=== PATIENT | male | born 1940 | race Caucasian/White ===

== ENCOUNTER 2023-02-07 19:47 | Inpatient (IN) | payer MEDICARE, OTHER ==
[~2023-02-07] VITALS: Ht 177.8 cm; Wt 79.1 kg
[2023-02-07 21:36] VITALS: BP 110/63; TEMP 98.2; O2SAT 98
[2023-02-07] MEDS ORDERED: ASPI81TA31 PO (22:42)
[2023-02-07] MEDS ORDERED: INSU3INS6 SQ (22:42)
[2023-02-07] MEDS ORDERED: PARO-154 PO (22:42)
[2023-02-07] MEDS ORDERED: CEFD300C3 PO (22:42)
[2023-02-07] MEDS ORDERED: PANT40TA2 PO (22:42)
[2023-02-07] MEDS ORDERED: METH-807 PO (22:42)
[2023-02-07] MEDS ORDERED: SENN-18 PO (22:42)
[2023-02-07] MEDS ORDERED: DOCU100T2 PO (22:42)
[2023-02-07] MEDS ORDERED: ONDA4TAB11 PO (22:42)
[2023-02-07] MEDS ORDERED: LACT10SO58 PO (22:42)
[2023-02-07] MEDS ORDERED: ATOR40TA PO (22:42)
[2023-02-07] MEDS ORDERED: METO25TA6 PO (22:42)
[2023-02-07] MEDS ORDERED: MELA1TAB53 PO (22:42)
[2023-02-07] MEDS ORDERED: LOSA50TA39 PO (22:42)
[2023-02-07] MEDS ORDERED: POLY17PO4 PO (22:42)
[2023-02-07] MEDS ORDERED: INSU100C (22:44)
[2023-02-07] MEDS: ACETAMINOPHEN 325 MG TABLET PO PRN (23:45)
[2023-02-08 04:00] VITALS: BP 112/60; TEMP 98
[2023-02-08] MEDS: ACETAMINOPHEN 325 MG TABLET PO PRN ×2 (05:42→20:24)
[2023-02-08] MEDS ORDERED: DICL100G31 TP (07:18)
[2023-02-08 07:32] VITALS: BP 123/70; TEMP 98.2; O2SAT 96
[2023-02-08] MEDS ORDERED: DEXTROSE 50% 50 ML DISP.SYRIN IV PRN (08:00)
[2023-02-08] MEDS: HYDROCODONE/APAP 10-325 MG TABLET PO PRN ×2 (08:55→19:19)
[2023-02-08] MEDS ORDERED: ONDANSETRON ODT 4 MG TAB.RAPDIS SL PRN (09:15)
[2023-02-08] MEDS ORDERED: SENNOSIDES 1 TABLET PO PRN (09:15)
[2023-02-08] MEDS ORDERED: DOCUSATE SODIUM 100 MG CAPSULE PO PRN (09:15)
[2023-02-08] MEDS ORDERED: ASPIRIN 81 MG TAB.CHEW PO SCH (10:00)
[2023-02-08] MEDS: MIRALAX 17 GM POWD.PACK PO SCH (10:18)
[2023-02-08] MEDS: METOPROLOL TARTRATE 25 MG TABLET PO SCH ×2 (10:19→16:54)
[2023-02-08] MEDS: BLOOD SUGAR DIAGNOSTIC 1 EACH STRIP VI SCH ×3 (11:24→20:05)
[2023-02-08] MEDS: INSULIN REGULAR, HUMAN 300 UNIT/3 ML VIAL SQ PRN ×3 (11:26→20:27)
[2023-02-08] MEDS ORDERED: TAMS-3 PO (12:55)
[2023-02-08 15:10] VITALS: BP 134/64; TEMP 98.2; O2SAT 98
[2023-02-08] MEDS: PROTEIN SUPPLEMENT (PROSTAT) 30 ML LIQUID PO SCH (16:54)
[2023-02-08] MEDS ORDERED: CEFDINIR 300 MG PO SCH (17:00)
[2023-02-08] MEDS: PAROXETINE HCL 10 MG TABLET PO SCH (20:24)
[2023-02-08] MEDS: LOSARTAN POTASSIUM 50 MG TABLET PO SCH (20:25)
[2023-02-08] MEDS: TAMSULOSIN HCL 0.4 MG CAP.SR.24H PO SCH (20:25)
[2023-02-08] MEDS: ATORVASTATIN 40 MG TABLET PO SCH (20:25)
[2023-02-08] MEDS: INSULIN GLARGINE,HUM 300 UNITS/3 ML CARTRIDGE SQ SCH (20:29)
[2023-02-08 20:30] VITALS: BP 121/68; TEMP 99.1; O2SAT 95
[2023-02-08] MEDS: CEphaleXIN 250 MG CAPSULE PO SCH (21:06)
[2023-02-09] MEDS: HYDROCODONE/APAP 10-325 MG TABLET PO PRN ×3 (03:01→16:58)
[2023-02-09 04:35] VITALS: BP 138/88; TEMP 97.9; O2SAT 97
[2023-02-09] MEDS: PANTOPRAZOLE SODIUM 40 MG TABLET.DR PO SCH (06:30)
[2023-02-09] MEDS: CEphaleXIN 250 MG CAPSULE PO SCH ×3 (06:30→21:29)
[2023-02-09] MEDS: BLOOD SUGAR DIAGNOSTIC 1 EACH STRIP VI SCH ×4 (06:33→21:35)
[2023-02-09 07:46] VITALS: BP 132/76; TEMP 98.1; O2SAT 96
[2023-02-09] MEDS: MIRALAX 17 GM POWD.PACK PO SCH (09:34)
[2023-02-09] MEDS: METOPROLOL TARTRATE 25 MG TABLET PO SCH ×2 (09:38→17:19)
[2023-02-09] MEDS: PROTEIN SUPPLEMENT (PROSTAT) 30 ML LIQUID PO SCH ×2 (09:40→17:19)
[2023-02-09] MEDS: INSULIN REGULAR, HUMAN 300 UNIT/3 ML VIAL SQ PRN ×4 (09:46→21:37)
[2023-02-09 16:57] VITALS: BP 108/65; TEMP 98.2; O2SAT 97
[2023-02-09 20:30] VITALS: BP 106/61; TEMP 98.4; O2SAT 95
[2023-02-09] MEDS: ATORVASTATIN 40 MG TABLET PO SCH (21:28)
[2023-02-09] MEDS: PAROXETINE HCL 10 MG TABLET PO SCH (21:28)
[2023-02-09] MEDS: TAMSULOSIN HCL 0.4 MG CAP.SR.24H PO SCH (21:28)
[2023-02-09] MEDS: ACETAMINOPHEN 325 MG TABLET PO PRN (21:28)
[2023-02-09] MEDS: LOSARTAN POTASSIUM 50 MG TABLET PO SCH (21:30)
[2023-02-09] MEDS: INSULIN GLARGINE,HUM 300 UNITS/3 ML CARTRIDGE SQ SCH (21:35)
[2023-02-10] MEDS: HYDROCODONE/APAP 10-325 MG TABLET PO PRN ×2 (01:44→08:35)
[2023-02-10 04:20] VITALS: BP 108/66; TEMP 98.6; O2SAT 95
[2023-02-10] MEDS: CEphaleXIN 250 MG CAPSULE PO SCH ×3 (06:32→20:25)
[2023-02-10] MEDS: PANTOPRAZOLE SODIUM 40 MG TABLET.DR PO SCH (06:32)
[2023-02-10] MEDS: ACETAMINOPHEN 325 MG TABLET PO PRN ×2 (06:51→20:25)
[2023-02-10] MEDS: BLOOD SUGAR DIAGNOSTIC 1 EACH STRIP VI SCH ×4 (06:59→20:27)
[2023-02-10 07:34] VITALS: BP 121/75; TEMP 98.2; O2SAT 96
[2023-02-10] MEDS: MIRALAX 17 GM POWD.PACK PO SCH (08:29)
[2023-02-10] MEDS: METOPROLOL TARTRATE 25 MG TABLET PO SCH ×2 (08:29→16:36)
[2023-02-10] MEDS: INSULIN REGULAR, HUMAN 300 UNIT/3 ML VIAL SQ PRN ×4 (08:31→20:24)
[2023-02-10] MEDS: PROTEIN SUPPLEMENT (PROSTAT) 30 ML LIQUID PO SCH ×2 (08:33→17:16)
[2023-02-10] MEDS: METHOCARBAMOL 750 MG TABLET PO PRN (12:18)
[2023-02-10] MEDS: LACTULOSE 20 G/30 ML LIQUID UDC PO PRN ×2 (13:04→13:49)
[2023-02-10 16:10] VITALS: BP 100/60; TEMP 98.4; O2SAT 96
[2023-02-10 20:15] VITALS: BP 121/71; TEMP 98.2; O2SAT 98
[2023-02-10] MEDS: INSULIN GLARGINE,HUM 300 UNITS/3 ML CARTRIDGE SQ SCH (20:23)
[2023-02-10] MEDS: TAMSULOSIN HCL 0.4 MG CAP.SR.24H PO SCH (20:26)
[2023-02-10] MEDS: ATORVASTATIN 40 MG TABLET PO SCH (20:26)
[2023-02-10] MEDS: PAROXETINE HCL 10 MG TABLET PO SCH (20:26)
[2023-02-10] MEDS: LOSARTAN POTASSIUM 50 MG TABLET PO SCH (20:27)
[2023-02-11] MEDS: HYDROCODONE/APAP 10-325 MG TABLET PO PRN ×2 (03:29→21:04)
[2023-02-11 05:12] VITALS: BP 109/60; TEMP 97.9; O2SAT 97
[2023-02-11] MEDS: PANTOPRAZOLE SODIUM 40 MG TABLET.DR PO SCH (06:22)
[2023-02-11] MEDS: CEphaleXIN 250 MG CAPSULE PO SCH ×3 (06:22→21:09)
[2023-02-11] MEDS: BLOOD SUGAR DIAGNOSTIC 1 EACH STRIP VI SCH ×4 (06:25→21:13)
[2023-02-11] MEDS: INSULIN REGULAR, HUMAN 300 UNIT/3 ML VIAL SQ PRN ×4 (07:47→21:14)
[2023-02-11 08:00] VITALS: BP 110/71; TEMP 98.5; O2SAT 96
[2023-02-11] MEDS: MIRALAX 17 GM POWD.PACK PO SCH (08:09)
[2023-02-11] MEDS: METOPROLOL TARTRATE 25 MG TABLET PO SCH ×2 (08:09→16:39)
[2023-02-11] MEDS: PROTEIN SUPPLEMENT (PROSTAT) 30 ML LIQUID PO SCH ×2 (08:10→17:27)
[2023-02-11 15:48] VITALS: BP 93/54; TEMP 98.3; O2SAT 96
[2023-02-11 20:00] VITALS: BP 101/63; TEMP 98.7; O2SAT 96
[2023-02-11] MEDS: ATORVASTATIN 40 MG TABLET PO SCH (21:04)
[2023-02-11] MEDS: LOSARTAN POTASSIUM 50 MG TABLET PO SCH (21:09)
[2023-02-11] MEDS: TAMSULOSIN HCL 0.4 MG CAP.SR.24H PO SCH (21:09)
[2023-02-11] MEDS: PAROXETINE HCL 10 MG TABLET PO SCH (21:10)
[2023-02-11] MEDS: INSULIN GLARGINE,HUM 300 UNITS/3 ML CARTRIDGE SQ SCH (21:15)
[2023-02-12 04:00] VITALS: BP 111/54; TEMP 98.6; O2SAT 96
[2023-02-12] MEDS: CEphaleXIN 250 MG CAPSULE PO SCH ×3 (06:18→21:07)
[2023-02-12] MEDS: PANTOPRAZOLE SODIUM 40 MG TABLET.DR PO SCH (06:18)
[2023-02-12] MEDS: BLOOD SUGAR DIAGNOSTIC 1 EACH STRIP VI SCH ×4 (06:23→21:16)
[2023-02-12 08:00] VITALS: BP 103/63; TEMP 98; O2SAT 96
[2023-02-12] MEDS: INSULIN REGULAR, HUMAN 300 UNIT/3 ML VIAL SQ PRN ×4 (08:10→21:18)
[2023-02-12] MEDS: METOPROLOL TARTRATE 25 MG TABLET PO SCH ×2 (08:47→16:24)
[2023-02-12] MEDS: ACETAMINOPHEN 325 MG TABLET PO PRN (08:56)
[2023-02-12] MEDS: MIRALAX 17 GM POWD.PACK PO SCH (08:56)
[2023-02-12] MEDS: PROTEIN SUPPLEMENT (PROSTAT) 30 ML LIQUID PO SCH ×2 (09:04→16:24)
[2023-02-12] MEDS: HYDROCODONE/APAP 10-325 MG TABLET PO PRN ×2 (13:25→21:07)
[2023-02-12 15:48] VITALS: BP 86/47; TEMP 98.4; O2SAT 97
[2023-02-12 15:57] VITALS: BP 94/58
[2023-02-12 15:58] VITALS: BP 126/52
[2023-02-12 19:36] VITALS: BP 107/59; TEMP 98.8; O2SAT 97
[2023-02-12] MEDS: TAMSULOSIN HCL 0.4 MG CAP.SR.24H PO SCH (21:07)
[2023-02-12] MEDS: ATORVASTATIN 40 MG TABLET PO SCH (21:07)
[2023-02-12] MEDS: PAROXETINE HCL 10 MG TABLET PO SCH (21:07)
[2023-02-12] MEDS: LOSARTAN POTASSIUM 50 MG TABLET PO SCH (21:08)
[2023-02-12] MEDS: INSULIN GLARGINE,HUM 300 UNITS/3 ML CARTRIDGE SQ SCH (21:17)
[2023-02-12] MEDS ORDERED: ZOLPIDEM 5 MG TABLET PO ONE (22:15)
[2023-02-13] MEDS: HYDROCODONE/APAP 10-325 MG TABLET PO PRN ×2 (04:24→22:19)
[2023-02-13] MEDS: PANTOPRAZOLE SODIUM 40 MG TABLET.DR PO SCH (06:18)
[2023-02-13] MEDS: CEphaleXIN 250 MG CAPSULE PO SCH (06:18)
[2023-02-13 06:20] VITALS: BP 110/69; TEMP 98.4; O2SAT 96
[2023-02-13] MEDS: BLOOD SUGAR DIAGNOSTIC 1 EACH STRIP VI SCH ×4 (06:47→20:42)
[2023-02-13 08:00] VITALS: BP 119/56; TEMP 98.3; O2SAT 98
[2023-02-13] MEDS: ASPIRIN 81 MG TAB.CHEW PO SCH (08:56)
[2023-02-13] MEDS: METOPROLOL TARTRATE 25 MG TABLET PO SCH ×2 (08:56→16:45)
[2023-02-13] MEDS: PROTEIN SUPPLEMENT (PROSTAT) 30 ML LIQUID PO SCH ×2 (08:57→17:02)
[2023-02-13] MEDS: MIRALAX 17 GM POWD.PACK PO SCH (08:57)
[2023-02-13] MEDS: INSULIN REGULAR, HUMAN 300 UNIT/3 ML VIAL SQ PRN ×3 (12:16→21:00)
[2023-02-13] MEDS: ACETAMINOPHEN 325 MG TABLET PO PRN (15:17)
[2023-02-13 16:00] VITALS: BP 96/60; TEMP 97.6; O2SAT 97
[2023-02-13 20:00] VITALS: BP 143/51; TEMP 98.4; O2SAT 99
[2023-02-13] MEDS: INSULIN GLARGINE,HUM 300 UNITS/3 ML CARTRIDGE SQ SCH (21:02)
[2023-02-13] MEDS: TAMSULOSIN HCL 0.4 MG CAP.SR.24H PO SCH (21:10)
[2023-02-13] MEDS: ATORVASTATIN 40 MG TABLET PO SCH (21:10)
[2023-02-13] MEDS: PAROXETINE HCL 10 MG TABLET PO SCH (21:11)
[2023-02-13] MEDS: LOSARTAN POTASSIUM 50 MG TABLET PO SCH (21:11)
[2023-02-14] MEDS: METHOCARBAMOL 750 MG TABLET PO PRN (02:34)
[2023-02-14 04:00] VITALS: BP 131/75; TEMP 97.8; O2SAT 96
[2023-02-14] MEDS: ACETAMINOPHEN 325 MG TABLET PO PRN (05:17)
[2023-02-14] MEDS: BLOOD SUGAR DIAGNOSTIC 1 EACH STRIP VI SCH ×4 (06:42→20:57)
[2023-02-14] MEDS: PANTOPRAZOLE SODIUM 40 MG TABLET.DR PO SCH (07:03)
[2023-02-14] MEDS: INSULIN REGULAR, HUMAN 300 UNIT/3 ML VIAL SQ PRN ×4 (07:50→20:58)
[2023-02-14 08:00] VITALS: BP 140/60; TEMP 97.8; O2SAT 96
[2023-02-14] MEDS: METOPROLOL TARTRATE 25 MG TABLET PO SCH ×2 (08:04→16:57)
[2023-02-14] MEDS: MIRALAX 17 GM POWD.PACK PO SCH (08:04)
[2023-02-14] MEDS: ASPIRIN 81 MG TAB.CHEW PO SCH (08:04)
[2023-02-14] MEDS: PROTEIN SUPPLEMENT (PROSTAT) 30 ML LIQUID PO SCH ×2 (08:05→16:57)
[2023-02-14 16:00] VITALS: BP 150/60; TEMP 97.7; O2SAT 97
[2023-02-14 20:00] VITALS: BP 144/55; TEMP 99; O2SAT 97
[2023-02-14] MEDS: HYDROCODONE/APAP 10-325 MG TABLET PO PRN (20:46)
[2023-02-14] MEDS: PAROXETINE HCL 10 MG TABLET PO SCH (20:47)
[2023-02-14] MEDS: TAMSULOSIN HCL 0.4 MG CAP.SR.24H PO SCH (20:47)
[2023-02-14] MEDS: LOSARTAN POTASSIUM 50 MG TABLET PO SCH (20:47)
[2023-02-14] MEDS: ATORVASTATIN 40 MG TABLET PO SCH (20:47)
[2023-02-14] MEDS: INSULIN GLARGINE,HUM 300 UNITS/3 ML CARTRIDGE SQ SCH (20:56)
[2023-02-15] MEDS: ACETAMINOPHEN 325 MG TABLET PO PRN ×3 (04:55→20:39)
[2023-02-15] MEDS: PANTOPRAZOLE SODIUM 40 MG TABLET.DR PO SCH (06:15)
[2023-02-15] MEDS: BLOOD SUGAR DIAGNOSTIC 1 EACH STRIP VI SCH ×4 (06:15→20:22)
[2023-02-15 07:00] VITALS: BP 144/61; TEMP 97.6; O2SAT 96
[2023-02-15] MEDS: INSULIN REGULAR, HUMAN 300 UNIT/3 ML VIAL SQ PRN ×3 (07:57→16:56)
[2023-02-15 07:58] VITALS: BP 134/58; TEMP 97.7; O2SAT 97
[2023-02-15] MEDS: ASPIRIN 81 MG TAB.CHEW PO SCH (08:18)
[2023-02-15] MEDS: METOPROLOL TARTRATE 25 MG TABLET PO SCH ×2 (08:18→16:08)
[2023-02-15] MEDS: PROTEIN SUPPLEMENT (PROSTAT) 30 ML LIQUID PO SCH ×2 (08:18→16:08)
[2023-02-15] MEDS: MIRALAX 17 GM POWD.PACK PO SCH (08:18)
[2023-02-15 15:49] VITALS: BP 150/67; TEMP 97.7; O2SAT 97
[2023-02-15] MEDS: HYDROCODONE/APAP 10-325 MG TABLET PO PRN (18:53)
[2023-02-15] MEDS: LOSARTAN POTASSIUM 50 MG TABLET PO SCH (20:23)
[2023-02-15] MEDS: PAROXETINE HCL 10 MG TABLET PO SCH (20:23)
[2023-02-15] MEDS: ATORVASTATIN 40 MG TABLET PO SCH (20:23)
[2023-02-15] MEDS: TAMSULOSIN HCL 0.4 MG CAP.SR.24H PO SCH (20:23)
[2023-02-15] MEDS: INSULIN GLARGINE,HUM 300 UNITS/3 ML CARTRIDGE SQ SCH (20:23)
[2023-02-15 21:18] VITALS: BP 147/57; TEMP 98.6; O2SAT 96
[2023-02-16] MEDS: HYDROCODONE/APAP 10-325 MG TABLET PO PRN ×2 (02:19→20:03)
[2023-02-16 04:30] VITALS: BP 118/56; TEMP 97.2; O2SAT 94
[2023-02-16] MEDS: PANTOPRAZOLE SODIUM 40 MG TABLET.DR PO SCH (06:24)
[2023-02-16] MEDS: BLOOD SUGAR DIAGNOSTIC 1 EACH STRIP VI SCH ×4 (06:32→20:19)
[2023-02-16] MEDS: INSULIN REGULAR, HUMAN 300 UNIT/3 ML VIAL SQ PRN ×3 (07:25→20:20)
[2023-02-16 07:55] VITALS: BP 120/64; TEMP 97.4; O2SAT 97
[2023-02-16] MEDS: MIRALAX 17 GM POWD.PACK PO SCH (08:00)
[2023-02-16] MEDS: ASPIRIN 81 MG TAB.CHEW PO SCH (08:00)
[2023-02-16] MEDS: METOPROLOL TARTRATE 25 MG TABLET PO SCH ×2 (08:00→16:30)
[2023-02-16] MEDS: PROTEIN SUPPLEMENT (PROSTAT) 30 ML LIQUID PO SCH ×2 (08:08→16:32)
[2023-02-16] MEDS: ACETAMINOPHEN 325 MG TABLET PO PRN (08:39)
[2023-02-16 15:59] VITALS: BP 128/54; TEMP 97.6; O2SAT 98
[2023-02-16 20:00] VITALS: BP 144/52; TEMP 97.7; O2SAT 98
[2023-02-16] MEDS: ATORVASTATIN 40 MG TABLET PO SCH (20:02)
[2023-02-16] MEDS: LOSARTAN POTASSIUM 50 MG TABLET PO SCH (20:02)
[2023-02-16] MEDS: PAROXETINE HCL 10 MG TABLET PO SCH (20:02)
[2023-02-16] MEDS: TAMSULOSIN HCL 0.4 MG CAP.SR.24H PO SCH (20:05)
[2023-02-16] MEDS: INSULIN GLARGINE,HUM 300 UNITS/3 ML CARTRIDGE SQ SCH (20:19)
[2023-02-17] MEDS: ACETAMINOPHEN 325 MG TABLET PO PRN (04:01)
[2023-02-17 05:25] VITALS: BP 127/58; TEMP 97.5; O2SAT 100
[2023-02-17] MEDS: PANTOPRAZOLE SODIUM 40 MG TABLET.DR PO SCH (06:12)
[2023-02-17] MEDS: HYDROCODONE/APAP 10-325 MG TABLET PO PRN ×2 (06:14→22:13)
[2023-02-17] MEDS: BLOOD SUGAR DIAGNOSTIC 1 EACH STRIP VI SCH ×4 (06:15→21:59)
[2023-02-17 06:55] LABS: BASOPHILS # (AUTO) 0.1 K/UL (0.0-0.2); BASOPHILS % (AUTO) 0.8 % (0.0-2.0); EOSINOPHILS # (AUTO) 0.5 K/uL (0.0-0.7); EOSINOPHILS % (AUTO) 6.7 % (0.0-7.0); HEMATOCRIT 34.4 % (36.7-47.1); HEMOGLOBIN 11.5 g/dL (12.5-16.3); LYMPHOCYTES # (AUTO) 1.5 K/uL (0.8-4.8); LYMPHOCYTES % (AUTO) 19.6 % (20.5-51.5); MEAN CORPUSCULAR HEMOGLOBIN 29.8 uug (23.8-33.4); MEAN CORPUSCULAR HGB CONC 34 g/dL (32.5-36.3); MEAN CORPUSCULAR VOLUME 88.7 fL (73.0-96.2); MONOCYTES # (AUTO) 0.5 K/uL (0.1-1.30); MONOCYTES % (AUTO) 6.1 % (0.0-11.0); NEUTROPHILS # (AUTO) 5.1 K/uL (1.8-8.9); NEUTROPHILS % (AUTO) 66.8 % (38.5-71.5); PLATELET COUNT (AUTO) 489 K/uL (152-348); RED BLOOD CELL COUNT(AUTO) 3.87 MIL/uL (4.06-5.63); RED CELL DISTRIBUTION WIDTH 13.9 % (12.1-16.2); WHITE BLOOD COUNT (AUTO) 7.7 K/uL (3.6-10.2)
[2023-02-17 07:06] LABS: DIFFERENTIAL COMMENT 1
[2023-02-17 07:19] LABS: ALBUMIN 3.3 g/dL (3.4-5.0); BILIRUBIN,TOTAL 0.6 mg/dL (0.2-1.0); CALCIUM 9.1 mg/dL (8.5-10.1); CREATININE 1.1 mg/dL (0.6-1.3); MAGNESIUM 2.1 mg/dL (1.8-2.4); PHOSPHOROUS 4.2 mg/dL (2.5-4.9); TOTAL PROTEIN, SERUM 7.4 g/dL (6.4-8.2)
[2023-02-17] MEDS: INSULIN REGULAR, HUMAN 300 UNIT/3 ML VIAL SQ PRN ×2 (07:30→15:59)
[2023-02-17] MEDS: PROTEIN SUPPLEMENT (PROSTAT) 30 ML LIQUID PO SCH ×2 (07:53→16:44)
[2023-02-17] MEDS: MIRALAX 17 GM POWD.PACK PO SCH (07:53)
[2023-02-17] MEDS: ASPIRIN 81 MG TAB.CHEW PO SCH (07:53)
[2023-02-17] MEDS: METOPROLOL TARTRATE 25 MG TABLET PO SCH ×2 (07:53→16:01)
[2023-02-17 07:55] VITALS: BP 120/53; TEMP 98.6; O2SAT 97
[2023-02-17 15:06] VITALS: BP 122/60; TEMP 98.2; O2SAT 96
[2023-02-17 20:00] VITALS: BP_SYST 138; TEMP 97.5
[2023-02-17] MEDS: ATORVASTATIN 40 MG TABLET PO SCH (22:10)
[2023-02-17] MEDS: TAMSULOSIN HCL 0.4 MG CAP.SR.24H PO SCH (22:10)
[2023-02-17] MEDS: PAROXETINE HCL 10 MG TABLET PO SCH (22:13)
[2023-02-17] MEDS: LOSARTAN POTASSIUM 50 MG TABLET PO SCH (22:13)
[2023-02-17] MEDS: INSULIN GLARGINE,HUM 300 UNITS/3 ML CARTRIDGE SQ SCH (22:15)
[2023-02-18] MEDS: HYDROCODONE/APAP 10-325 MG TABLET PO PRN ×3 (00:27→21:42)
[2023-02-18 05:19] VITALS: BP 143/53; TEMP 97.9; O2SAT 97
[2023-02-18] MEDS: PANTOPRAZOLE SODIUM 40 MG TABLET.DR PO SCH (06:11)
[2023-02-18] MEDS: BLOOD SUGAR DIAGNOSTIC 1 EACH STRIP VI SCH ×4 (06:38→20:25)
[2023-02-18] MEDS: ASPIRIN 81 MG TAB.CHEW PO SCH (08:01)
[2023-02-18] MEDS: MIRALAX 17 GM POWD.PACK PO SCH (08:01)
[2023-02-18] MEDS: PROTEIN SUPPLEMENT (PROSTAT) 30 ML LIQUID PO SCH ×2 (08:01→16:36)
[2023-02-18] MEDS: METOPROLOL TARTRATE 25 MG TABLET PO SCH ×2 (08:01→16:35)
[2023-02-18 08:10] VITALS: BP 127/45; TEMP 98.4; O2SAT 97
[2023-02-18] MEDS: INSULIN REGULAR, HUMAN 300 UNIT/3 ML VIAL SQ PRN ×3 (12:11→21:41)
[2023-02-18] MEDS: ACETAMINOPHEN 325 MG TABLET PO PRN (12:17)
[2023-02-18 15:16] VITALS: BP 127/42; TEMP 98; O2SAT 100
[2023-02-18 19:48] VITALS: BP 132/55; TEMP 98.1; O2SAT 96
[2023-02-18] MEDS: TAMSULOSIN HCL 0.4 MG CAP.SR.24H PO SCH (21:30)
[2023-02-18] MEDS: ATORVASTATIN 40 MG TABLET PO SCH (21:30)
[2023-02-18] MEDS: LOSARTAN POTASSIUM 50 MG TABLET PO SCH (21:30)
[2023-02-18] MEDS: PAROXETINE HCL 10 MG TABLET PO SCH (21:30)
[2023-02-18] MEDS: INSULIN GLARGINE,HUM 300 UNITS/3 ML CARTRIDGE SQ SCH (21:40)
[2023-02-19] MEDS: PANTOPRAZOLE SODIUM 40 MG TABLET.DR PO SCH (06:13)
[2023-02-19] MEDS: BLOOD SUGAR DIAGNOSTIC 1 EACH STRIP VI SCH ×4 (06:40→20:51)
[2023-02-19 06:41] VITALS: BP 142/60; TEMP 97.6; O2SAT 96
[2023-02-19 07:43] VITALS: BP 148/61; TEMP 98.4; O2SAT 95
[2023-02-19] MEDS: ASPIRIN 81 MG TAB.CHEW PO SCH (08:30)
[2023-02-19] MEDS: METOPROLOL TARTRATE 25 MG TABLET PO SCH ×2 (08:32→16:31)
[2023-02-19] MEDS: MIRALAX 17 GM POWD.PACK PO SCH ×2 (08:33→09:00)
[2023-02-19] MEDS: INSULIN REGULAR, HUMAN 300 UNIT/3 ML VIAL SQ PRN ×2 (08:37→11:39)
[2023-02-19] MEDS: ACETAMINOPHEN 325 MG TABLET PO PRN (08:42)
[2023-02-19] MEDS: PROTEIN SUPPLEMENT (PROSTAT) 30 ML LIQUID PO SCH ×2 (08:42→16:31)
[2023-02-19 15:11] VITALS: BP 108/43; TEMP 98.4; O2SAT 96
[2023-02-19] MEDS: PAROXETINE HCL 10 MG TABLET PO SCH (20:47)
[2023-02-19] MEDS: TAMSULOSIN HCL 0.4 MG CAP.SR.24H PO SCH (20:47)
[2023-02-19] MEDS: LOSARTAN POTASSIUM 50 MG TABLET PO SCH (20:47)
[2023-02-19] MEDS: ATORVASTATIN 40 MG TABLET PO SCH (20:48)
[2023-02-19 20:49] VITALS: BP 103/56; TEMP 98.4; O2SAT 98
[2023-02-19] MEDS: INSULIN GLARGINE,HUM 300 UNITS/3 ML CARTRIDGE SQ SCH (20:50)
[2023-02-19] MEDS: HYDROCODONE/APAP 10-325 MG TABLET PO PRN (20:59)
[2023-02-20 04:20] VITALS: BP 127/56; TEMP 98.4; O2SAT 98
[2023-02-20] MEDS: ACETAMINOPHEN 325 MG TABLET PO PRN (05:09)
[2023-02-20] MEDS: PANTOPRAZOLE SODIUM 40 MG TABLET.DR PO SCH (06:08)
[2023-02-20] MEDS: BLOOD SUGAR DIAGNOSTIC 1 EACH STRIP VI SCH ×2 (07:06→11:30)
[2023-02-20] MEDS: INSULIN REGULAR, HUMAN 300 UNIT/3 ML VIAL SQ PRN (07:18)
[2023-02-20 08:00] VITALS: BP 134/44; TEMP 97; O2SAT 98
[2023-02-20] MEDS: ASPIRIN 81 MG TAB.CHEW PO SCH (08:11)
[2023-02-20 08:12] VITALS: BP 130/56
[2023-02-20] MEDS: METOPROLOL TARTRATE 25 MG TABLET PO SCH (08:12)
[2023-02-20] MEDS: MIRALAX 17 GM POWD.PACK PO SCH (08:12)
[2023-02-20] MEDS: PROTEIN SUPPLEMENT (PROSTAT) 30 ML LIQUID PO SCH (08:12)
== END 2023-02-20 13:10 | disposition home health service (06) | DRG 561 ==
PROVIDERS: ADMIT Physical Medicine & Rehabilitation Pain Medicine; ATTEND Physical Medicine & Rehabilitation Pain Medicine
DX: S12.400D Unspecified displaced fracture of fifth cervical vertebra, subsequent encounter for fracture with routine healing (principal); Z47.89 Encounter for other orthopedic aftercare; E11.9 Type 2 diabetes mellitus without complications; E78.5 Hyperlipidemia, unspecified; I10 Essential (primary) hypertension; I25.10 Atherosclerotic heart disease of native coronary artery without angina pectoris; I25.2 Old myocardial infarction; Z96.653 Presence of artificial knee joint, bilateral; Z95.5 Presence of coronary angioplasty implant and graft; Z98.1 Arthrodesis status; N40.0 Benign prostatic hyperplasia without lower urinary tract symptoms; W18.30XD Fall on same level, unspecified, subsequent encounter; Z79.4 Long term (current) use of insulin; Z98.41 Cataract extraction status, right eye; Z98.42 Cataract extraction status, left eye
CPT/HCPCS: 36415; 83735; 84100; 85025; 97535-GO-CO; A4663; J1815; Q0162